=== PATIENT | female | born 1930 | race Caucasian/White ===

== ENCOUNTER 2018-08-13 13:11 | Emergency (ER) | payer MEDICARE, OTHER ==
[~2018-08-13] VITALS: Ht 167.6 cm; Wt 54.4 kg
--- OUTSIDE RECORDS SUMMARY | 2018-08-13 13:14 | XMS REPORT | Clinical Summary ---
Author Author [facility] Address Unknown Phone Unavailable Care Team Providers Care Loom Winder Tender Name Role Phone Claire Nguyen MD PCP Allergies Active Allergy Reactions Severity Noted Date Comments Morphine Nausea And Vomiting 12/23/2015 Penicillins Rash Low 12/23/2015 1982 Silver Nitrate Swelling 02/02/2016 Redness; Wound never healed Silver Sulfadiazine 12/23/2015 Sulfa (Sulfonamide Rash Low 12/23/2015 1988 Antibiotics) Sulfacetamide Sodium 08/04/2016 Sulfasalazine 05/24/2016 Current Medications Prescription Sig. Disp. Refills Start End Date Status Date CRANBERRY FRUIT EXTRACT Take by mouth. Active (ELLURA ORAL) levothyroxine (SYNTHROID, TAKE 1 TABLET BY MOUTH 90 tablet 3 10/01/20 Active LEVOXYL) 50 mcg tablet EVERY DAY 17 folic Take by mouth. Active acid/multivit-min/lutein (CENTRUM SILVER ORAL) docusate sodium (COLACE Take by mouth. Active ORAL) MAGNESIUM ORAL Take by mouth nightly. Active loratadine (CLARITIN Take by mouth as needed. Active ORAL) gabapentin (NEURONTIN) Take 1 capsule (100 mg 90 capsule 11 02/16/20 02/16/20 Active 100 mg capsule total) by mouth 3 (three) 18 19 times a day. atorvastatin (LIPITOR) 20 TAKE 1 TABLET BY MOUTH 90 tablet 3 06/18/20 Active MG tablet EVERY DAY 18 ramipril (ALTACE) 10 MG TAKE 2 CAPSULES BY MOUTH 180 capsule 2 06/18/20 Active capsule EVERY DAY 18 amLODIPine (NORVASC) 5 mg TAKE 1 TABLET (5 MG 90 tablet 2 06/18/20 06/18/20 Active tablet TOTAL) BY MOUTH DAILY. 18 19 levothyroxine (SYNTHROID, TAKE 1 TABLET (50 MCG 90 tablet 3 09/21/20 09/30/20 Discontin LEVOXYL) 50 mcg tablet TOTAL) BY MOUTH ONCE 16 17 ued DAILY. ramipril (ALTACE) 10 MG TAKE 2 CAPSULES (20 MG 180 capsule 2 01/09/20 09/26/20 Discontin capsule TOTAL) BY MOUTH ONCE 17 17 ued DAILY. amLODIPine (NORVASC) 5 mg Take 1 tablet (5 mg 90 tablet 3 06/28/20 06/15/20 Discontin tablet total) by mouth daily. 17 18 ued doxycycline (VIBRAMYCIN) Take 1 capsule (100 mg 14 capsule 1 07/02/20 02/16/20 Discontin 100 MG total) by mouth 2 (two) 17 18 ued capsuleIndications: times a day for 334 days. Recurrent UTI atorvastatin (LIPITOR) 20 TAKE 1 TABLET (20 MG 90 tablet 3 07/09/20 06/15/20 Discontin MG tablet TOTAL) BY MOUTH ONCE 17 18 ued DAILY. ramipril (ALTACE) 10 MG TAKE 2 CAPSULES (20 MG 180 capsule 2 09/26/20 06/15/20 Discontin capsule TOTAL) BY MOUTH ONCE 17 18 ued DAILY. 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 Resolved Problems Problem Noted Date Resolved Date LLQ pain 08/04/2016 02/15/2018 Bee sting reaction 10/29/2013 02/15/2018 Encounters Date Type Specialty Care Team Description 06/15/2018 Refill Family Medicine Claire Nguyen MD 02/18/2018 Hospital Procedural Cardiology Claire Nguyen MD Right leg swelling Encounter 02/18/2018 Telephone Internal Medicine Naila Paz MA Hypothyroidism, unspecified type (Primary Dx) 02/15/2018 Office Visit Internal Medicine Claire Nguyen MD Encounter for general adult medical examination with abnormal findings (Primary Dx); Benign hypertension; Acquired hypothyroidism; Immune thrombocytopenic purpura; Pure hypercholesterolemia; Chest wall pain; Right leg swelling 09/30/2017 Refill Internal Medicine Claire Nguyen MD 09/26/2017 Refill Internal Medicine Claire Nguyen MD 08/17/2017 Office Visit Internal Medicine Claire Nguyen MD Environmental allergies (Primary Dx); Age related osteoporosis, unspecified pathological fracture presence; Flu vaccine need after 08/12/2017 Immunizations Name Dates Previously Given Next Due FLUZONE HIGH-DOSE PF 08/17/2017, 07/02/2015, 06/17/2014 Influenza Trivalent 07/11/2016 Influenza, Unspecified 10/29/2013, 07/12/2012 Pneumococcal Conjugate 07/08/2015 13-Valent Pneumococcal 07/15/2011 Polysaccharide Tdap 07/15/2011 Family History Medical History Relation Name Comments Heart disease Father Asthma Mother Cancer Mother lung Lung cancer Mother Relation Name Status Comments Father Mother Social History Tobacco Use Types Packs/Day Years Used Date Former Smoker Cigarettes 0.25 3 05/18/1950 - 05/18/1952 Smokeless Tobacco: Never Used Alcohol Use Drinks/Week oz/Week Comments No Sex Assigned at Date Recorded Not on file Last Filed Vital Signs Vital Sign Reading Time Taken Blood Pressure 222/76 02/15/2018 10:46 AM CDT Pulse 66 02/15/2018 10:46 AM CDT Temperature 36.4 C (97.5 F) 02/15/2018 10:46 AM CDT Respiratory Rate - - Oxygen Saturation 96% 02/15/2018 10:46 AM CDT Inhaled Oxygen - - Concentration Weight 56.2 kg (124 lb) 02/15/2018 10:46 AM CDT Height 167.6 cm (5' 6") 02/15/2018 10:46 AM CDT Body Mass Index 20.01 02/15/2018 10:46 AM CDT Plan of Treatment Date Type Specialty Care Team Description 08/30/2018 Office Visit Internal Medicine Claire Nguyen MD [address] [address] Health Maintenance Due Date Last Done Comments SHINGRIX VACCINE (#1) 1979 INFLUENZA VACCINE 05/15/2018 08/17/2017, 08/17/2017, 08/17/2017, Additional history exists PNEUMOCOCCAL Completed 07/15/2011 POLYSACCHARIDE VACCINE AGE 65 AND OVER PNEUMOCOCCAL-13 Completed 07/08/2015, 07/08/2015 ZOSTER VACCINE Excluded Procedures Procedure Name Priority Date/Time Associated Diagnosis Comments US DUPLEX VENOUS LOWER Routine 02/18/2018 Right leg swelling Results for this EXTREMITY RIGHT 12:59 PM CDT procedure are in the results section. XR CHEST 2 VW Routine 02/15/2018 Chest wall pain Results for this 11:31 AM CDT procedure are in the results section. MICROSCOPIC EXAMINATION Routine 02/15/2018 Results for this 11:18 AM CDT procedure are in the results section. THYROID STIMULATING Routine 02/15/2018 Acquired hypothyroidism Results for this HORMONE 11:18 AM CDT procedure are in the results section. URINALYSIS, COMPLETE, Routine 02/15/2018 Benign hypertension Results for this WITH REFLEX TO CULTURE 11:18 AM CDT procedure are in the results section. CBC WITH PLATELET AND Routine 02/15/2018 Immune thrombocytopenic Results for this DIFFERENTIAL 11:18 AM CDT purpura procedure are in the results section. LIPID PANEL Routine 02/15/2018 Pure hypercholesterolemia Results for this 11:18 AM CDT procedure are in the results section. COMPREHENSIVE METABOLIC Routine 02/15/2018 Benign hypertension Results for this PANEL 11:18 AM CDT Acquired hypothyroidism procedure are in the Immune thrombocytopenic results section. purpura Pure hypercholesterolemia FLUZONE HIGH-DOSE PF Routine 08/17/2017 Flu vaccine need (0.5ML SYRINGE) 10:40 AM CDT after 08/12/2017 Results * Pv duplex venous lower extremity (02/18/2018 12:59 PM) Narrative Performed At [facility] Normal venous duplex scan of the right leg, except for the cystic structure in the right popliteal fossa. Performing Organization Address City/State/Zipcode Phone Number [facility] [address] [place] [address] * XR Chest 2 Vw (02/15/2018 11:31 AM) Narrative Performed At EXAMINATION:XR CHEST 2 VW [facility] CLINICAL HISTORY:R07.89 Other chest pain, Chest Pain COMPARISON:05/18/2016 IMPRESSION: Heart and mediastinum are stable. Mild scoliosis. Lungs are free of consolidations. Osteopenia again noted. Calcified right paratracheal nodes again seen. [id number] Procedure Note Hm Interface, Radiology Results Incoming - 02/15/2018 11:46 AM CDT EXAMINATION: XR CHEST 2 VW CLINICAL HISTORY: R07.89 Other chest pain, Chest Pain COMPARISON: 05/18/2016 IMPRESSION: Heart and mediastinum are stable. Mild scoliosis. Lungs are free of consolidations. Osteopenia again noted. Calcified right paratracheal nodes again seen. [id number] Performing Organization Address [facility] Phone Number [facility] [address] [place] [address] * URINALYSIS, COMPLETE, WITH REFLEX TO CULTURE (02/15/2018 11:18 AM) Specific gravity, urine 1.019 1.005 - 1.030 [facility] pH, urine 7.0 5.0 - 7.5 [facility] Color, UA Yellow Yellow [facility] Appearance Clear Clear [facility] WBC esterase, urine Negative Negative [facility] Protein, UA 1+ (A) Negative/Trace [facility] Glucose, urine Negative Negative [facility] Ketones, UA Negative Negative [facility] Occult blood, urine Negative Negative [facility] Bilirubin, UA Negative Negative [facility] Urobilinogen, UA 0.2 0.2 - 1.0 mg/dL [facility] Nitrite, UA Negative Negative [facility] Microscopic examination See below:Comment: Microscopic [facility] was indicated and was performed. Urinalysis reflex CommentComment: This specimen [facility] will not reflex to a Urine Culture. Narrative Performed At Performed at: [id number] Sanitor: Man Melchor MD, Phone:[phone] Performing Organization Address [facility] Phone Number [facility] * Microscopic Examination (02/15/2018 11:18 AM) WBC, UA 0-5 0 - 5 /hpf [facility] RBC, UA 0-2 0 - 2 /hpf [facility] Epithelial cells (non 0-10 0 - 10 /hpf [facility] renal) Crystals, urine Present (A) N/A [facility] Crystal type Amorphous Sediment N/A [facility] Mucus, UA Present Not Estab. [facility] Bacteria, UA None seen None seen/Few [facility] Narrative Performed At Performed at: [facility] [address] [place] [address], [id number] Sanitor: Man Melchor MD, Phone:[phone] Performing Organization Address [facility] Phone Number [facility] * CBC with platelet and differential (02/15/2018 11:18 AM) WBC 5.2 3.4 - 10.8 x10E3/uL [facility] RBC 4.78 3.77 - 5.28 x10E6/uL [facility] HGB 13.2 11.1 - 15.9 g/dL [facility] HCT 39.6 34.0 - 46.6 % [facility] MCV 83 79 - 97 fL [facility] MCH 27.6 26.6 - 33.0 pg [facility] MCHC 33.3 31.5 - 35.7 g/dL [facility] RDW 16.7 (H) 12.3 - 15.4 % [facility] Platelet count 59 (LL) 150 - 379 x10E3/uL [facility] Comment: Platelet count verified by examination of peripheral blood smear. Decreased. Neutrophils 65 Not Estab. % [facility] Lymphocytes 22 Not Estab. % [facility] Monocytes 7 Not Estab. % [facility] Eosinophils 3 Not Estab. % [facility] Basophils 3 Not Estab. % [facility] Neutrophils, absolute 3.4 1.4 - 7.0 x10E3/uL [facility] Lymphocytes, absolute 1.1 0.7 - 3.1 x10E3/uL [facility] Monocytes, absolute 0.4 0.1 - 0.9 x10E3/uL [facility] Eosinophils, absolute 0.2 0.0 - 0.4 x10E3/uL [facility] Basophils, absolute 0.1 0.0 - 0.2 x10E3/uL [facility] Immature granulocytes 0 Not Estab. % [facility] Immature grans (abs) 0.0 0.0 - 0.1 x10E3/uL [facility] Hematology comments: Note:Comment: Verified by [facility] microscopic examination. Specimen Blood Narrative Performed At [facility]formed at:[facility] - [facility] [address] [place], [id number] Sanitor: Man Melchor MD, Phone:[phone] Performing Organization Address [facility] Phone Number [facility] * Thyroid stimulating hormone (02/15/2018 11:18 AM) TSH 5.180 (H) 0.450 - 4.500 uIU/mL [facility] Specimen Blood Narrative Performed At Performed at:01 - [facility] [place], [id number] Sanitor: Man Melchor MD, Phone:[phone] Performing Organization Address [facility] Phone Number [facility] * Lipid panel (02/15/2018 11:18 AM) Cholesterol 175 100 - 199 mg/dL [facility] Triglycerides 96 0 - 149 mg/dL [facility] HDL cholesterol 74 >39 mg/dL [facility] VLDL cholesterol bibiana 19 5 - 40 mg/dL [facility] LDL cholesterol 82 0 - 99 mg/dL [facility] calculated Non-HDL cholesterol 101 0 - 129 mg/dL [facility] Specimen Blood Narrative Performed At Performed at:01 - [facility] [address] [place], [place] [id number] Sanitor: Man Melchor MD, Phone:[phone] Performing Organization Address [facility] Phone Number [facility] * Comprehensive metabolic panel (02/15/2018 11:18 AM) Glucose 92 65 - 99 mg/dL [facility] BUN, whole blood 23 8 - 27 mg/dL [facility] Creatinine 0.87 0.57 - 1.00 mg/dL [facility] EGFR Non-Afr. Haitian 59 (L) >59 mL/min/1.73 [facility] EGFR 68 >59 mL/min/1.73 [facility] BUN/creatinine ratio 26 12 - 28 [facility] Sodium 144 134 - 144 mmol/L [facility] Potassium 3.7 3.5 - 5.2 mmol/L [facility] Chloride 103 96 - 106 mmol/L [facility] CO2 24 18 - 29 mmol/L [facility] Calcium 8.9 8.7 - 10.3 mg/dL [facility] Protein 7.2 6.0 - 8.5 g/dL [facility] Albumin, S 4.8 (H) 3.5 - 4.7 g/dL [facility] Globulin, total 2.4 1.5 - 4.5 g/dL [facility] Albumin/globulin ratio 2.0 1.2 - 2.2 [facility] Total bilirubin 0.5 0.0 - 1.2 mg/dL [facility] Alkaline phosphatase 71 39 - 117 IU/L [facility] AST 23 0 - 40 IU/L [facility] ALT 19 0 - 32 IU/L [facility] Specimen Blood Narrative Performed At Performed at: [facility] [address] [place], [id number] Sanitor: Man Melchor MD, Phone:[phone] Performing Organization Address City/State/[facility] Phone Number [facility] * Fluzone High-Dose PF (08/17/2017 10:40 AM) after 08/12/2017 Insurance Payer Benefit Subscriber ID Type Phone Address Plan / Group MEDICARE MEDICARE xxxxxxxxxx Medicare [place], [place] PART A AND B COMMERCIAL MISC MISC xxxxxxxxx [place] [address]
--- NOTE | 2018-08-13 15:15 | Diagnostic Imaging Report ---
EXAM: CT of the abdomen and pelvis WITHOUT contrast HISTORY: Left-sided abdominal pain for 2 weeks, left upper quadrant, history of gallbladder surgery, appendectomy and hysterectomy COMPARISON: None available. TECHNIQUE: The abdomen and pelvis were scanned utilizing a multidetector helical scanner. Coronal and sagittal reformats are available. PROTOCOL: Routine IV CONTRAST: None, which limits sensitivity and specificity of evaluation of the soft tissues and vascular structures. ORAL CONTRAST: None, which limits sensitivity and specificity of evaluation of the bowel. RADIATION DOSE: Total DLP: 386.96 mGy*cm Estimated effective dose: (DLP x 0.015 x size factor) Dose modulation, iterative reconstruction, and/or weight based adjustment of the mA/kV was utilized to reduce the radiation dose to as low as reasonably achievable. COMPLICATIONS: None FINDINGS: LOWER THORAX: Mild bibasilar atelectasis versus scarring. Trace pericardial fluid. HEPATOBILIARY: No definite focal hepatic lesions. No biliary ductal dilatation. Diffuse scattered atherosclerotic vascular calcifications. SPLEEN: No splenomegaly. PANCREAS: No focal masses or ductal dilatation. ADRENALS: No discrete adrenal nodule. KIDNEYS/URETERS: No hydronephrosis, stones, or solid mass lesion identified. Mild parenchymal atrophy on the left. PELVIC ORGANS/BLADDER: The urinary bladder is decompressed, limiting evaluation. PERITONEUM / RETROPERITONEUM: No free air or fluid. GI TRACT: On limited evaluation of the gastrointestinal tract, no dilation or wall thickening identified. The stomach is partially decompressed, limiting evaluation. LYMPH NODES: No pathologically enlarged lymph nodes. VESSELS: Prominent scattered atherosclerotic vascular calcifications. BONES: Diffusely decreased mineralization of the osseous structures limits bone detail. Left convex curvature of the lumbar spine and multilevel degenerative changes. Chronic appearing compression deformities versus remodeling of T12 on the right, and L4 and L5 on the left. Chronic healed fracture deformities involving the left superior and inferior pubic rami. Bilateral pars interarticularis defects at L5 without associated listhesis. SOFT TISSUES: Diffuse muscle atrophy. IMPRESSION: 1. No acute finding to definitively explain the left-sided abdominal pain. 2. Multiple incidental findings include: * Prominent atherosclerosis. * Mild left renal atrophy. * Diffusely decreased osseous demineralization and age-indeterminate compression deformities versus remodeling of multiple vertebral bodies. * Multilevel degenerative changes of the lumbosacral spine, most notably severe at T12-L1 and L4-5. * Bilateral L5 pars interarticularis defects. Signed by: Dr. Ted Santos D.O., M.M.M. on 08/13/2018 3:12 PM
[2018-08-13 15:21] VITALS: BP 189/84
[2018-08-13] MEDS ORDERED: SIMETHICONE80 MG PO (15:26)
== END 2018-08-13 15:30 | disposition home or self-care (01) ==
LOC: FSED 13:11
DX: R10.12 Left upper quadrant pain (principal); M54.5 Low back pain; R14.1 Gas pain; I10 Essential (primary) hypertension
CPT/HCPCS: 74176; 80048; 80076; 81003; 85025; 99284

== ENCOUNTER 2018-09-28 07:54 | Emergency (ER) | payer MEDICARE, OTHER ==
[~2018-09-28] VITALS: Ht 167.6 cm; Wt 55.3 kg
[~2018-09-28 07:54] MED LIST: SIMETHICONE80 MG PO
[2018-09-28 09:10] VITALS: BP 147/75
[2018-09-28] MEDS ORDERED: HYDROCODONE/APAP 5MG-325MG TAB PO ONE (18:45)
== END 2018-09-28 09:18 | disposition home or self-care (01) ==
LOC: FSED 07:54
DX: R30.0 Dysuria (principal); N30.91 Cystitis, unspecified with hematuria; M54.6 Pain in thoracic spine; M54.14 Radiculopathy, thoracic region
CPT/HCPCS: 81003; 99283

== ENCOUNTER 2018-12-31 07:38 | Emergency (ER) | payer MEDICARE, OTHER ==
[~2018-12-31] VITALS: Ht 167.6 cm; Wt 54.4 kg
--- OUTSIDE RECORDS SUMMARY | 2018-12-31 07:42 | XMS REPORT ---
Author Author [facility] Address Unknown Phone Unavailable Care Team Providers Care Bologna Lacer Name Role Phone Janey WYMAN Unavailable Unavailable Problems This patient has no known problems. Allergies, Adverse Reactions, Alerts This patient has no known allergies or adverse reactions. Medications This patient has no known medications. Results Test Description Test Time Test Comments Text Results Atomic Results Result Comments CT ABD/PEL WO CONTRAST-HOPD 2018-08-13 14:56:00 [place] [address] Patient Name: CONCHITA MONTALVO MR #: [id number] : 1930 Age/Sex: 88/F Req #: [id number] Adm Physician: Ordered by: MIRACLE WYMAN MD Report #: [id number] Location: [facility] Room/Bed: Procedure: [id number] HOPD/CT ABD/PEL WO CONTRAST-HOPD Exam Date: 08/13/18 Exam Time: 1400 REPORT STATUS: Signed EXAM: CT of the abdomen and pelvis WITHOUT contrast HISTORY: Left-sided abdominal pain for 2 weeks, left upper quadrant, history of gallbladder surgery, appendectomy and hysterectomy COMPARISON: None available. TECHNIQUE: The abdomen and pelvis were scanned utilizing a multidetector helical scanner. Coronal and sagittal reformats are available. PROTOCOL: Routine IV CONTRAST: None, which limits sensitivity and specificity of evaluation of the soft tissues and vascular structures. ORAL CONTRAST: None, which limits sensitivity and specificity of evaluation of the bowel. RADIATION DOSE: Total DLP: 386.96 mGy*cm Estimated effective dose: (DLP x 0.015 x size factor) Dose modulation, iterative reconstruction, and/or weight based adjustment of the mA/kV was utilized to reduce the radiation dose to as low as reasonably achievable. COMPLICATIONS: None FINDINGS: LOWER THORAX: Mild bibasilar atelectasis versus scarring. Trace pericardial fluid. HEPATOBILIARY: No definite focal hepatic lesions. No biliary ductal dilatation. Diffuse scattered atherosclerotic vascular calcifications. SPLEEN: No splenomegaly. PANCREAS: No focal masses or ductal dilatation. ADRENALS: No discrete adrenal nodule. KIDNEYS/URETERS: No hydronephrosis, stones, or solid mass lesion identified. Mild parenchymal atrophy on the left. PELVIC ORGANS/BLADDER: The urinary bladder is decompressed, limiting evaluation. PERITONEUM / RETROPERITONEUM: No free air or fluid. GI TRACT: On limited evaluation of the gastrointestinal tract, no dilation or wall thickening identified. The stomach is partially decompressed, limiting evaluation. LYMPH NODES: No pathologically enlarged lymph nodes. VESSELS: Prominent scattered atherosclerotic vascular calcifications. BONES: Diffusely decreased mineralization of the osseous structures limits bone detail. Left convex curvature of the lumbar spine and multilevel degenerative changes. Chronic appearing compression deformities versus remodeling of T12 on the right, and L4 and L5 on the left. Chronic healed fracture deformities involving the left superior and inferior pubic rami. Bilateral pars interarticularis defects at L5 without associated listhesis. SOFT TISSUES: Diffuse muscle atrophy. IMPRESSION: 1. No acute finding to definitively explain the left-sided abdominal pain. 2. Multiple incidental findings include: * Prominent atherosclerosis. * Mild left renal atrophy. * Diffusely decreased osseous demineralization and age-indeterminate compression deformities versus remodeling of multiple vertebral bodies. * Multilevel degenerative changes of the lumbosacral spine, most notably severe at T12-L1 and L4-5. * Bilateral L5 pars interarticularis defects. Signed by: Navi Luna.O., M.M.M. on 08/13/2018 3:12 PM Dictated By: LELA HAMILTON DO 151 Transcribed By: JACOB on 08/13/181511 COPY TO: MIRACLE WYMAN MD
--- OUTSIDE RECORDS SUMMARY | 2018-12-31 07:42 | XMS REPORT | Clinical Summary ---
Author Author [facility] Organization [facility] Address Unknown Phone Unavailable Care Team Providers Care Stock Order Lister Name Role Phone Claire Nguyen MD PCP Allergies Comments Active Allergy Reactions Severity Noted Date Morphine Nausea And 12/23/2015 Vomiting 1981 Penicillins Rash Low 12/23/2015 Redness; Wound never healed Silver Nitrate Swelling 02/02/2016 Silver Sulfadiazine 12/23/2015 1988 Sulfa (Sulfonamide Rash Low 12/23/2015 Antibiotics) Sulfacetamide Sodium 08/04/2016 Sulfasalazine 05/24/2016 Medications End Date Status Medication Sig Dispensed Refills Start Date Active CRANBERRY FRUIT EXTRACT Take by 0 (ELLURA ORAL) mouth. Active folic Take by 0 acid/multivit-min/lutein mouth. (CENTRUM SILVER ORAL) Active docusate sodium (COLACE Take by 0 ORAL) mouth. Active loratadine (CLARITIN Take by mouth 0 ORAL) as needed. Active atorvastatin (LIPITOR) 20 TAKE 1 TABLET 90 tablet 3 MG tablet BY MOUTH 8 EVERY DAY Active ramipril (ALTACE) 10 MG TAKE 2 180 capsule 2 capsule CAPSULES BY 8 MOUTH EVERY DAY 06/18/2019 Active amLODIPine (NORVASC) 5 mg TAKE 1 TABLET 90 tablet 2 tablet (5 MG TOTAL) 8 BY MOUTH DAILY. Active levothyroxine (SYNTHROID, TAKE 1 TABLET 90 tablet 3 LEVOXYL) 50 mcg tablet BY MOUTH 8 EVERY DAY 09/12/2019 Active teriparatide (FORTEO) 20 Inject 0.08 7.2 mL 3 mcg/dose - 600 mcg/2.4 mL mL (20 mcg 8 injection total) under the skin daily. Active gabapentin (NEURONTIN) Take 1 360 capsule 3 300 mg capsule capsule (300 9 mg total) by mouth 3 (three) times a day. 06/15/2018 Discontinued amLODIPine (NORVASC) 5 mg Take 1 tablet 90 tablet 3 tablet (5 mg total) 7 by mouth daily. 02/15/2018 Discontinued doxycycline (VIBRAMYCIN) Take 1 14 capsule 1 100 MG capsule (100 7 capsuleIndications: mg total) by Recurrent UTI mouth 2 (two) times a day for 334 days. 06/15/2018 Discontinued atorvastatin (LIPITOR) 20 TAKE 1 TABLET 90 tablet 3 MG tablet (20 MG TOTAL) 7 BY MOUTH ONCE DAILY. 06/15/2018 Discontinued ramipril (ALTACE) 10 MG TAKE 2 180 capsule 2 capsule CAPSULES (20 7 MG TOTAL) BY MOUTH ONCE DAILY. 09/12/2018 Discontinued levothyroxine (SYNTHROID, TAKE 1 TABLET 90 tablet 3 LEVOXYL) 50 mcg tablet BY MOUTH 7 EVERY DAY 10/25/2018 Discontinued MAGNESIUM ORAL Take by mouth 0 nightly. 08/31/2018 Discontinued gabapentin (NEURONTIN) Take 1 90 capsule 11 100 mg capsule capsule (100 8 mg total) by mouth 3 (three) times a day. 09/12/2018 Discontinued pregabalin (LYRICA) 25 MG Take 1 30 capsule 0 capsule capsule (25 8 mg total) by mouth 2 (two) times a day for 15 days. 10/12/2018 pregabalin (LYRICA) 50 MG Take 1 90 capsule 1 capsule capsule (50 8 mg total) by mouth 3 (three) times a day for 30 days. 10/25/2018 Discontinued gabapentin (NEURONTIN) Take 300 mg 0 300 mg capsule by mouth 3 8 (three) times a day. 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 Resolved Problems Problem Noted Date Resolved Date LLQ pain 08/04/2016 02/15/2018 Bee sting reaction 10/29/2013 02/15/2018 Encounters Care Team Description Date Type Specialty Claire Nguyen MD Age-related osteoporosis with current pathological fracture, sequela (Primary Dx); Immune thrombocytopenic purpura (HCC); Non-traumatic compression fracture of sixth thoracic vertebra, sequela; Acquired hypothyroidism 10/25/2018 Office Visit Internal Medicine Claire Nguyen MD Non-traumatic compression fracture of sixth thoracic vertebra, sequela (Primary Dx); Age-related osteoporosis with current pathological fracture, sequela; Hospital discharge follow-up 09/12/2018 Office Visit Internal Claire Conley MD 09/12/2018 Refill Internal Medicine Claire Nguyen MD 09/09/2018 Telephone Internal Medicine Payam Reddy MD 08/28/2018 Anesthesia Radiology Event Oskar Garcia MD Lee, Kelvin M., MD Non-traumatic compression fracture of sixth thoracic vertebra, initial encounter (HCC) (Primary Dx); Non-traumatic compression fracture of seventh thoracic vertebra, initial encounter (HCC); Lumbosacral radiculopathy 08/26/2018 [facility] Orthopedic Surgery - Encounter 08/31/2018 Alexandra Russ 08/26/2018 Patient Quality Outreach Claire Nguyen MD 06/15/2018 Refill Family Medicine Claire Nguyen MD Right leg swelling 02/18/2018 Hospital Procedural Cardiology Encounter Naila Paz MA Hypothyroidism, unspecified type (Primary Dx) 02/18/2018 Telephone Internal Medicine Claire Nguyen MD Encounter for general adult medical examination with abnormal findings (Primary Dx); Benign hypertension; Acquired hypothyroidism; Immune thrombocytopenic purpura; Pure hypercholesterolemia; Chest wall pain; Right leg swelling 02/15/2018 Office Visit Internal Medicine after 12/30/2017 Immunizations Name Dates Previously Given Next Due FLUZONE HIGH-DOSE PF 07/17/2018, 08/17/2017, 07/02/2015, 06/17/2014 Influenza Trivalent 07/11/2016 Influenza, Unspecified 10/29/2013, 07/12/2012 Pneumococcal Conjugate 07/08/2015 13-Valent Pneumococcal 07/15/2011 Polysaccharide Tdap 07/15/2011 Family History Medical History Relation Name Comments Heart disease Father Asthma Mother Cancer Mother lung Lung cancer Mother Relation Name Status Comments Father Mother Social History Date Tobacco Use Types Packs/Day Years Used 05/18/1950 - 05/18/1952 Former Smoker Cigarettes 0.25 3 Smokeless Tobacco: Never Used Alcohol Use Drinks/Week oz/Week Comments No Sex Assigned at Date Recorded Not on file Industry Job Start Date Occupation Not on file Not on file Not on file Travel End Travel History Travel Start No recent travel history available. Last Filed Vital Signs Time Taken Vital Sign Reading 10/25/2018 9:09 AM FISHER TRAP Blood Pressure 179/74 10/25/2018 9:09 AM [facility] TR[facility] Pulse 61 10/25/2018 9:09 AM [facility] TRAP Temperature 36.4 C (97.6 F) 08/31/2018 11:48 AM FISHER TRAP Respiratory Rate 18 10/25/2018 9:09 AM FISHER TRAP Oxygen Saturation 98% - Inhaled Oxygen - Concentration 10/25/2018 9:09 AM FISHER TRAP Weight 54.6 kg (120 lb 6.4 oz) 10/25/2018 9:09 AM [facility] TRAP Height 167.6 cm (5' 6") 10/25/2018 9:09 AM [facility]ER TRAP Body Mass Index 19.43 Plan of Treatment Care Team Description Date Type Specialty Claire Nguyen MD [address] [facility] [address] [place] [address] [phone] 02/24/2019 Office Visit Internal Medicine Health Maintenance Due Date Last Done Comments SHINGLES VACCINES (#1) 1979 PNEUMOCOCCAL Completed 07/15/2011 POLYSACCHARIDE VACCINE AGE 65 AND OVER 65+ PNEUMOCOCCAL VACCINE Completed 07/08/2015, 07/15/2011 INFLUENZA VACCINE Completed 07/17/2018, 08/17/2017, 08/17/2017, Additional history exists Implants Device Identifier Shelf Expiration Date Model / Serial / Lot Implanted Type Area Manufactur er 07/14/2020 [id number] / / [id number] Kit Cmnt Spinal Hiviscocty 11ml Spinal N/A: N/A DEPUY [employer] Plus - [id number] Implants SPINE Implanted: 08/28/2018 (Quantity not on file) 07/14/2020 [id number] / / [id number] Kit Cmnt Spinal Hiviscocty 11ml Spinal N/A: N/A DEPUY [employer] Plus - [id number] Implants SPINE Implanted: 08/28/2018 (Quantity not on file) Procedures Comments Procedure Name Priority Date/Time Associated Diagnosis T3, FREE Routine 10/25/2018 Hypothyroidism, 10:03 AM FISHER TRAP unspecified type T4, FREE Routine 10/25/2018 Hypothyroidism, 10:03 AM FISHER TRAP unspecified type THYROID STIMULATING Routine 10/25/2018 Hypothyroidism, HORMONE 10:03 AM FISHER TRAP unspecified type PARATHYROID HORMONE Routine 09/12/2018 Age-related osteoporosis 11:47 AM FISHER TRAP with current pathological fracture, sequela VITAMIN D 25 HYDROXY Routine 09/12/2018 Age-related osteoporosis LEVEL 11:47 AM FISHER TRAP with current pathological fracture, sequela IR VERTEBRO LUM UNI OR Routine 08/28/2018 NAKIA 12:06 PM FISHER TRAP HC COMPLETE BLD COUNT STAT 08/28/2018 W/AUTO DIFF 7:59 AM FISHER TRAP PROTHROMBIN TIME WITH INR STAT 08/28/2018 7:59 AM FISHER TRAP T4, FREE Routine 08/28/2018 4:00 AM FISHER TRAP THYROID STIMULATING Routine 08/28/2018 HORMONE 4:00 AM FISHER TRAP PREPARE PLATELET PHERESIS Timed 08/27/2018 6:40 PM FISHER TRAP TYPE AND SCREEN Timed 08/27/2018 6:40 PM FISHER TRAP MRI LUMBAR SPINE WO Routine 08/27/2018 CONTRAST 6:21 PM FISHER TRAP MRI THORACIC SPINE WO Routine 08/26/2018 CONTRAST 9:01 PM FISHER TRAP GRAM STAIN Routine 08/26/2018 4:53 PM FISHER TRAP URINE CULTURE Routine 08/26/2018 4:[address] CHEST W CONTRAST STAT 08/26/2018 ABDOMEN W CONTRAST PELVIS 2:13 PM FISHER TRAP W CONTRAST URINALYSIS STAT 08/26/2018 12:42 PM FISHER TRAP SMEAR REVIEW STAT 08/26/2018 11:40 AM FISHER TRAP ESTIMATED GFR STAT 08/26/2018 11:40 AM FISHER TRAP LIPASE LEVEL STAT 08/26/2018 11:40 AM FISHER TRAP COMPREHENSIVE METABOLIC STAT 08/26/2018 PANEL 11:40 AM FISHER TRAP HC COMPLETE BLD COUNT STAT 08/26/2018 W/AUTO DIFF 11:40 AM FISHER TRAP US DUPLEX VENOUS LOWER Routine 02/18/2018 Right leg swelling EXTREMITY RIGHT 12:59 PM CDT XR CHEST 2 VW Routine 02/15/2018 Chest wall pain 11:31 AM CDT MICROSCOPIC EXAMINATION Routine 02/15/2018 11:18 AM CDT THYROID STIMULATING Routine 02/15/2018 Acquired hypothyroidism HORMONE 11:18 AM CDT URINALYSIS, COMPLETE, Routine 02/15/2018 Benign hypertension WITH REFLEX TO CULTURE 11:18 AM CDT CBC WITH PLATELET AND Routine 02/15/2018 Immune thrombocytopenic DIFFERENTIAL 11:18 AM CDT purpura LIPID PANEL Routine 02/15/2018 Pure hypercholesterolemia 11:18 AM CDT COMPREHENSIVE METABOLIC Routine 02/15/2018 Benign hypertension PANEL 11:18 AM CDT Acquired hypothyroidism Immune thrombocytopenic purpura Pure hypercholesterolemia after 12/30/2017 Results * T3, free (10/25/2018 10:03 AM FISHER TRAP) T3, free 2.3 2.3 - 4.2 pg/mL [employer] [place] Specimen Blood Narrative Performed At FASTING: NO QUEST Resulting Agency Comment Performing Organization Information: Site ID: [id number] Name: [facility] Address: [address] [place] [phone] Director: Patty Wang Performing Organization Address City/State/Zipcode Phone Number [employer] [place] [address] [place] [phone] * Thyroid stimulating hormone (10/25/2018 10:03 AM FISHER TRAP) Only the most recent of 3 results within the time period is included. TSH 2.46 0.40 - 4.50 mIU/L [employer] [place] Specimen Blood Narrative Performed At FASTING: NO QUEST Resulting Agency Comment Performing Organization Information: Site ID: [id number] Name: [facility] Address: [address] [place] [phone] Director: Patty Wang Performing Organization Address [facility] Phone Number [place] [address] * T4, free (10/25/2018 10:03 AM FISHER TRAP) Only the most recent of 2 results within the time period is included. T4, free 1.3 0.8 - 1.8 ng/dL [employer] [place] Specimen Blood Narrative Performed At FASTING: NO QUEST Resulting Agency Comment Performing Organization Information: Site ID: [facility] Name: [facility] Address: [address] [place] [phone] Director: Patty Wang Performing Organization Address [facility] Phone Number [employer] [address] * Vitamin D 25 hydroxy level (09/12/2018 11:47 AM FISHER TRAP) Vitamin D, 25-hydroxy 31.2 30.0 - 100.0 ng/mL [facility] Comment: Vitamin D deficiency has been defined by the [employer] of Medicine and an Endocrine Society practice guideline as a level of serum 25-OH vitamin D less than 20 ng/mL (1,2). The Endocrine Society went on to further define vitamin D insufficiency as a level between 21 and 29 ng/mL (2). 1. IOM ([employer] of Medicine). 2010. Dietary reference intakes for calcium and D. [place]: The National Academies Press. 2. Onur MF, Agustín [place], Rodríguez CAGE, et al. Evaluation, treatment, and prevention of vitamin D deficiency: an Endocrine Society clinical practice guideline. JCEM. 2010; 96(7):1911-30. Specimen Blood Narrative Performed At Performed at: - [facility] [address] [place], [id number] Pipe Organ Builder: Man Melchor MD, Phone:[phone] Performing Organization Address [facility] Phone Number [facility] * Parathyroid hormone (09/12/2018 11:47 AM FISHER TRAP) PTH 31 15 - 65 pg/mL [facility] Specimen Blood Narrative Performed At Performed at:01 - [facility] [address] [place], [id number] Pipe Organ Builder: Man Melchor MD, Phone:[phone] Performing Organization Address [facility] Phone Number [email or web address] * IR Vertebroplasty (08/28/2018 12:06 PM FISHER TRAP) Narrative Performed At EXAMINATION:IR VERTEBRO LUM UNI OR NAKIA HM RADIANT FLUOROSCOPIC-GUIDED CEMENT AUGMENTATION AND INTERNAL FIXATION OF T6, T7 and T12 COMPRESSION FRACTURE WITH VERTEBROPLASTY. CLINICAL HISTORY:Severe mid thoracic and lower thoracic pain. Recent MRI of the thoracic and lumbar spine demonstrates subacute compression fractures involving T6, T7 and T12 levels. COMPARISON:MRI of the spine dated August 27, 2018 PREOPERATIVE DIAGNOSIS: Osteoporotic compression fracture of T6, T7 and T12 vertebral body with severe back pain. POSTOPERATIVE DIAGNOSIS:Same. BLOOD LOSS:0 COMPLICATIONS:None CONSENT: After discussion of the radiographic findings and the compression fracture of T6, T7 and T12 vertebral body with patient and her family, we have decided to treat the compression fracture with Percutaneous vertebroplasty for fracture reduction and internal fixation. The patient and the members of the immediate family understood the risks and benefits of the procedure. Informed consent was obtained. PROCEDURE DESCRIPTION: The patient was brought to the Fluoroscopy Suite and placed on the fluoroscopy table in prone position. The procedure was performed under general anesthesia, which was conducted with an anesthesiologist. Prophylactic intravenous antibiotic1 g Ancef was given. The thoracolumbar region was prepped and draped in standard sterile fashion. The imaging intensifiers were placed in both AP and lateral fluoroscopic planes. Transpedicular/extrapedicular approach was utilized to access the T6, T7 and T12 vertebral compression fractures bilaterally.A 13 gauge entry needle was placed into the posterior aspect of the body of T6, T7 and T12 level bilaterally via transpedicular/extrapedicular approach. Positioning was confirmed in both AP and lateral planes simultaneously. Following satisfactory placement of the needles, the Stylet was removed andunder fluoroscopic imaging, internal fixation was achieved through injection of bone cement, namely polymethylmethacrylate (PMMA). There was no evidence of cement extravasation or any complication. Proper cement distribution in the fractured T6, T7 and T12 vertebral body was achieved. The cannulas were then removed. POST-PROCEDURE: All incisions were closed with Steri-Strips and pressure dressing. The patient was kept in the prone position for approximately 10 minutes. The patient was then turned supine, monitored briefly and returned to the post-procedure monitoring unit. The patient was awake and moving all extremities and at this time showed no neurologic deficit. No complications were encountered. Blood loss was noted to be minimal. Fluoroscopy time was 16 minutes Total fluoroscopic exposure images was 14 images. IMPRESSION: Successful uncomplicated fluoroscopic-guided cement augmentation and internal fixation of T6, T7 and [id number] fracture with vertebroplasty. There was adequate cement distribution in the fracture body and no evidence of complications. [facility]-[id number] Procedure Note [facility], Radiology Results Incoming - 08/28/2018 4:31 PM FISHER TRAP EXAMINATION: IR VERTEBRO LUM UNI OR NAKIA FLUOROSCOPIC-GUIDED CEMENT AUGMENTATION AND INTERNAL FIXATION OF T6, T7 and T12 COMPRESSION FRACTURE WITH VERTEBROPLASTY. CLINICAL HISTORY: Severe mid thoracic and lower thoracic pain. Recent MRI of the thoracic and lumbar spine demonstrates subacute compression fractures involving T6, T7 and T12 levels. COMPARISON: MRI of the spine dated August 27, 2018 PREOPERATIVE DIAGNOSIS: Osteoporotic compression fracture of T6, T7 and T12 vertebral body with severe back pain. POSTOPERATIVE DIAGNOSIS: Same. BLOOD LOSS: 0 COMPLICATIONS: None CONSENT: After discussion of the radiographic findings and the compression fracture of T6, T7 and T12 vertebral body with patient and her family, we have decided to treat the compression fracture with Percutaneous vertebroplasty for fracture reduction and internal fixation. The patient and the members of the immediate family understood the risks and benefits of the procedure. Informed consent was obtained. PROCEDURE DESCRIPTION: The patient was brought to the Fluoroscopy Suite and placed on the fluoroscopy table in prone position. The procedure was performed under general anesthesia, which was conducted with an anesthesiologist. Prophylactic intravenous antibiotic 1 g Ancef was given. The thoracolumbar region was prepped and draped in standard sterile fashion. The imaging intensifiers were placed in both AP and lateral fluoroscopic planes. Transpedicular/extrapedicular approach was utilized to access the T6, T7 and T12 vertebral compression fractures bilaterally. A 13 gauge entry needle was placed into the posterior aspect of the body of T6, T7 and T12 level bilaterally via transpedicular/extrapedicular approach. Positioning was confirmed in both AP and lateral planes simultaneously. Following satisfactory placement of the needles, the Stylet was removed and under fluoroscopic imaging, internal fixation was achieved through injection of bone cement, namely polymethylmethacrylate (PMMA). There was no evidence of cement extravasation or any complication. Proper cement distribution in the fractured T6, T7 and T12 vertebral body was achieved. The cannulas were then removed. POST-PROCEDURE: All incisions were closed with Steri-Strips and pressure dressing. The patient was kept in the prone position for approximately 10 minutes. The patient was then turned supine, monitored briefly and returned to the post-procedure monitoring unit. The patient was awake and moving all extremities and at this time showed no neurologic deficit. No complications were encountered. Blood loss was noted to be minimal. Fluoroscopy time was 16 minutes Total fluoroscopic exposure images was 14 images. IMPRESSION: Successful uncomplicated fluoroscopic-guided cement augmentation and internal fixation of T6, T7 and T12 compression fracture with vertebroplasty. There was adequate cement distribution in the fracture body and no evidence of complications. [facility]-[id number] Performing Organization Address [facility] Phone Number [facility] [address] [place] [address] * Prothrombin time with INR (08/28/2018 7:59 AM FISHER TRAP) Prothrombin time 13.2 11.5 - 14.5 sec [facility] INR 1.0 [facility] Comment: HOSPITAL The International Normalized Ratio (INR) is a therapeutic monitoring tool for patients who are stable on oral anticoagulant therapy. An INR of 2.0-3.0 is suggested for deep vein thrombosis/pulmonary embolism. Specimen Blood Performing Organization Address City/[facility]/Zipcode Phone Number [facility] DEPARTMENT OF [address] [place] [address] PATHOLOGY AND GENOMIC MEDICINE [address] * CBC with platelet and differential (08/28/2018 7:59 AM FISHER TRAP) Only the most recent of 3 results within the time period is included. WBC 5.07 4.50 - 11.00 k/uL [facility] RBC 4.22 4.20 - 5.50 m/uL [facility] HGB 11.6 (L) 12.0 - 16.0 g/dL [facility] HCT 35.5 (L) 37.0 - 47.0 % [facility] MCV 84.1 82.0 - 100.0 fL [facility] MCH 27.5 27.0 - 34.0 pg [facility] MCHC 32.7 31.0 - 37.0 g/dL [facility] RDW - SD 45.4 37.0 - 55.0 fL [facility] MPV SEE COMMENTComment: No report 8.8 - 13.2 fL [facility] Platelet count 61 (L) 150 - 400 k/uL [facility] Nucleated RBC 0.00 /100 WBC [facility] Neutrophils 64.1 39.0 - 69.0 % [facility] Lymphocytes 16.8 (L) 25.0 - 45.0 % [facility] Monocytes 11.4 (H) 0.0 - 10.0 % [facility] Eosinophils 5.5 (H) 0.0 - 5.0 % [facility] Basophils 2.0 (H) 0.0 - 1.0 % [facility] Immature granulocytes 0.2Comment: "Immature 0.0 - 1.0 % [facility] granulocytes" (promyelocytes, HOSPITAL myelocytes, metamyelocytes) Specimen Blood Performing Organization Address City/[facility]/[place] [address] PATHOLOGY AND [place] [address] HOSPITAL * Type and screen (08/27/2018 6:40 PM FISHER TRAP) ABO grouping AB [facility] Rh type POS [facility] Antibody screen (gel) NEG [facility] Specimen Blood Performing Organization Address City/[facility] Phone Number [address] [address] PATHOLOGY AND GENOMIC MEDICINE [address] * MRI Lumbar Spine Wo Contrast (08/27/2018 6:21 PM FISHER TRAP) Narrative Performed At EXAM: MRI LUMBAR SPINE WO CONTRAST HM RADIANT CLINICAL HISTORY: assess for compression fractures TECHNIQUE: Multiplanar multisequence noncontrast enhanced examination was performed of the Lumbar spine. COMPARISON:MRI thoracic spine, 08/26/2018 FINDINGS: There are five thm-oww-dnzfnul lumbar-type vertebrae, and the last functional disc is presumed to be L5-S1. Redemonstration of a subacute compression fracture involving the T12 vertebral body with approximately 50% vertebral height loss. No significant retropulsion is seen. Thoracolumbar levoscoliotic curvature is present with the left convex apex at the T12-L1 level and right convex apex at the L4-L5 level. T1 hypointense/STIR hyperintense Modic type I edema is identified at the left lateral endplates of L4-L5 and to lesser extent the right lateral endplates of L2-L3. Lumbar lordotic alignment, vertebral body height, and signal intensity are otherwise within normal limits. There is no evidence of acute lumbar fracture, suspicious osteolytic lesion, or suspicious osteoblastic lesion. No abnormal spinal cord signal is present. Evaluation of the disc levels is as follows: L1-L2: Mild bilateral facet hypertrophy. No significant thecal sac stenosis. Mild right inferior foraminal narrowing. No significant left inferior foraminal narrowing. L2-L3: Disc height loss, mild diffuse disc bulge, bilateral facet hypertrophy, and ligamentum flavum thickening. Impression upon the thecal sac without evidence of significant thecal sac stenosis. Dock-do-hrmgbgsy bilateral foraminal narrowing. L3-L4: Near-complete loss of disc height. Mild bilateral facet hypertrophy and ligamentum flavum thickening. Impression upon and mild triangular configuration of the thecal sac without evidence of significant thecal sac stenosis (best seen on T2 axial image 12, series 7). Moderate bilateral foraminal narrowing is noted with potential mild contact of the bilateral exiting L3 dorsal root ganglia. L4-L5: Disc height loss, minimal diffuse disc bulge, mild bilateral facet or vertebrae, and ligament flavum thickening. Impression upon the thecal sac without evidence of significant thecal sac stenosis. Severe left foraminal narrowing with compression of the exiting left L4 dorsal root ganglia. Mild right inferior foraminal narrowing is noted. L5-S1: Mild diffuse disc bulge and bilateral facet hypertrophy. No significant thecal sac stenosis. Cffl-gl-qiawmbod bilateral inferior foraminal narrowing. Visualized paraspinal soft tissues are unremarkable. IMPRESSION: 1.Redemonstration of a subacute compression fracture involving the T12 vertebral body with approximately 50% vertebral height loss. There is thoracolumbar levoscoliotic curvature with endplate degenerative edema (Modic type I), worse at the left lateral L4-L5 endplates. It is at this L4-L5 level at which there is right apex convexity of the scoliotic curvature and resulting compression/severe narrowing of the left L4-L5 foramina and exiting left L4 dorsal nerve ganglia. 2.Additional mild to moderate discogenic degenerative disease as listed. [facility]-[id number] Procedure Note [facility], Radiology Results Incoming - 08/27/2018 8:37 PM [facility] EXAM: MRI LUMBAR SPINE WO CONTRAST CLINICAL HISTORY: assess for compression fractures TECHNIQUE: Multiplanar multisequence noncontrast enhanced examination was performed of the Lumbar spine. COMPARISON: MRI thoracic spine, 08/26/2018 FINDINGS: There are five rnw-anj-hqnkypf lumbar-type vertebrae, and the last functional disc is presumed to be L5-S1. Redemonstration of a subacute compression fracture involving the T12 vertebral body with approximately 50% vertebral height loss. No significant retropulsion is seen. Thoracolumbar levoscoliotic curvature is present with the left convex apex at the T12-L1 level and right convex apex at the L4-L5 level. T1 hypointense/STIR hyperintense Modic type I edema is identified at the left lateral endplates of L4-L5 and to lesser extent the right lateral endplates of L2-L3. Lumbar lordotic alignment, vertebral body height, and signal intensity are otherwise within normal limits. There is no evidence of acute lumbar fracture, suspicious osteolytic lesion, or suspicious osteoblastic lesion. No abnormal spinal cord signal is present. Evaluation of the disc levels is as follows: L1-L2: Mild bilateral facet hypertrophy. No significant thecal sac stenosis. Mild right inferior foraminal narrowing. No significant left inferior foraminal narrowing. L2-L3: Disc height loss, mild diffuse disc bulge, bilateral facet hypertrophy, and ligamentum flavum thickening. Impression upon the thecal sac without evidence of significant thecal sac stenosis. Krqy-hd-qlkvgzgq bilateral foraminal narrowing. L3-L4: Near-complete loss of disc height. Mild bilateral facet hypertrophy and ligamentum flavum thickening. Impression upon and mild triangular configuration of the thecal sac without evidence of significant thecal sac stenosis (best seen on T2 axial image 12, series 7). Moderate bilateral foraminal narrowing is noted with potential mild contact of the bilateral exiting L3 dorsal root ganglia. L4-L5: Disc height loss, minimal diffuse disc bulge, mild bilateral facet or vertebrae, and ligament flavum thickening. Impression upon the thecal sac without evidence of significant thecal sac stenosis. Severe left foraminal narrowing with compression of the exiting left L4 dorsal root ganglia. Mild right inferior foraminal narrowing is noted. L5-S1: Mild diffuse disc bulge and bilateral facet hypertrophy. No significant thecal sac stenosis. Zoqy-hp-sobutkxs bilateral inferior foraminal narrowing. Visualized paraspinal soft tissues are unremarkable. IMPRESSION: 1. Redemonstration of a subacute compression fracture involving the T12 vertebral body with approximately 50% vertebral height loss. There is thoracolumbar levoscoliotic curvature with endplate degenerative edema (Modic type I), worse at the left lateral L4-L5 endplates. It is at this L4-L5 level at which there is right apex convexity of the scoliotic curvature and resulting compression/severe narrowing of the left L4-L5 foramina and exiting left L4 dorsal nerve ganglia. 2. 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 [facility]-[id number] Performing Organization Address City/State/Zipcode Phone Number [facility] [address] [place] [address] * MRI Thoracic Spine Wo Contrast (08/26/2018 9:01 PM FISHER TRAP) Narrative Performed At [facility] EXAMINATION:MRI THORACIC SPINE WO CONTRAST CLINICAL HISTORY:T-spine fxpathological COMPARISON:MRI of the lumbar spine dated November 10, 2015 CT of the chest dated August 07, 2016. TECHNIQUE: Multiplanar MRI imagingwithout IV Gadolinium was performed. IMPRESSION: Interval development of subacute compression fracture involving the right side of T12 vertebral body with the more than 30% height loss and no retropulsion or canal compromise. There is associated slight worsening of the left-sided scoliosis. Mild right-sided acute superior endplate compression fracture of L1 vertebral body with no significant height loss or retropulsion. Acute compression fractures involving T6 and T7 vertebral bodies with about 30% central and anterior height loss and no significant retropulsion or canal compromise. The spine canal is patent. There is no canal stenosis. The spinal cord demonstrates normal contour and signal with no focal lesion. The paravertebral soft tissues are unremarkable. [facility]-[id number] Procedure Note Hm Interface, Radiology Results Incoming - 08/26/2018 9:23 PM FISHER TRAP EXAMINATION: MRI THORACIC SPINE WO CONTRAST CLINICAL HISTORY: T-spine fx pathological COMPARISON: MRI of the lumbar spine dated November 10, 2015 CT of the chest dated August 07, 2016. TECHNIQUE: Multiplanar MRI imaging without IV Gadolinium was performed. IMPRESSION: Interval development of subacute compression fracture involving the right side of T12 vertebral body with the more than 30% height loss and no retropulsion or canal compromise. There is associated slight worsening of the left-sided scoliosis. Mild right-sided acute superior endplate compression fracture of L1 vertebral body with no significant height loss or retropulsion. Acute compression fractures involving T6 and T7 vertebral bodies with about 30% central and anterior height loss and no significant retropulsion or canal compromise. The spine canal is patent. There is no canal stenosis. The spinal cord demonstrates normal contour and signal with no focal lesion. The paravertebral soft tissues are unremarkable. [facility]-[id number] Performing Organization Address [facility] Phone Number [facility] [address] [place] [address] * Gram stain (08/26/2018 4:53 PM FISHER TRAP) Gram stain result Few WBC's [employer] [employer] No organisms seen HOSPITAL Comment: Specimen Information Specimen Source: Urine Specimen Site: Urine, clean catch Specimen Urine - Urine, clean catch Performing Organization Address [facility] Phone Number [facility] DEPARTMENT OF [address] [place] [address] PATHOLOGY AND GENOMIC MEDICINE [facility] * Urine culture (08/26/2018 4:53 PM FISHER TRAP) Urine culture isolate [facility]KO CONFUCIANIST [facility] HOSPITAL cori 10-4 col/cc Comment: Specimen Information Specimen Source: Urine Specimen Site: Urine, clean catch Specimen Urine - Urine, clean catch Performing Organization Address City/State/Zipcode Phone Number [facility] DEPARTMENT OF [address] [place] [address] PATHOLOGY AND GENOMIC MEDICINE [facility]FUCIAN[facility] [address] [place] [address] HOSPITAL * CT Chest W Contrast Abdomen W Contrast Pelvis W Contrast (08/26/2018 2:13 PM FISHER TRAP) Narrative Performed At EXAMINATION:CT CHEST W CONTRAST ABDOMEN W CONTRAST PELVIS W CONTRAST [facility] CLINICAL HISTORY:chest painabdominal pain TECHNIQUE: Multiple axial images of the chest, abdomen, and pelvis were obtained following intravenous administration of iodinated contrast. Sagittal and coronal computerized reformatted images were obtained. CT scans are performed using radiation dose reduction techniques. Technical factors are evaluated and adjusted to ensure appropriate moderation of exposure. Automated dose management technology is applied to adjust radiation exposure while achieving a diagnostic quality image. COMPARISON:12/09/2016 FINDINGS: Heart size appears mildly enlarged. There is a tiny pericardial effusion. The thoracic aorta demonstrates calcified and noncalcified plaque but is normal in caliber. There is no pleural effusion. No lymphadenopathy is present within the chest. Bronchiectasis and volume loss is present in the lingula. There is some scarring also present in the right middle lobe. Atelectasis is present in the dependent right and left lower lobes. A calcified granuloma measuring 5 mm is present in the right lower lobe. A benign, postinflammatory 2-3 mm groundglass nodule in the left lower lobe is stable to previous examination. Multiple calcified granulomas are again seen within the spleen. The gallbladder has been removed. There is mild stable prominence of the intrahepatic and extra hepatic bile ducts, stable to previous examination. Mild dilatation of the pancreatic duct is also stable. No pancreatic masses are seen. A 7-8 mm cyst is present within the right dome of the liver. 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 Left kidney is atrophic. There is calcified plaque within the abdominal aorta which is normal in caliber. No lymphadenopathy or ascites are present. Fecal material is present throughout the colon. There is no bowel obstruction. There are no inflammatory changes around the large or small bowel. Appendix is not clearly seen although no pericecal inflammatory changes are present. Bladder is partially distended with urine. Patient has undergone history. A small fat-containing left inguinal hernia is present. Compression deformities are present of the T6 and T7 vertebral bodies with widening of the T6-7 disc space. The findings may reflect advanced degenerative changes although underlying discitis cannot be excluded. Further evaluation is recommended with contrast-enhanced MRI of the thoracic spine. There is a chronic T12 compression fracture.There are degenerative changes throughout the thoracic and lumbosacral spine. There are old healed healed fractures of the left superior and inferior pubic rami. IMPRESSION: 1.There are compression deformities of the T6 and T7 vertebral bodies with widening of the T6-7 disc space. These findings may reflect advanced degenerative changes although underlying discitis cannot be excluded. Further evaluation is recommended with contrast-enhanced MRI of the thoracic spine. 2.Bronchiectasis and volume loss within the lingula is present. No consolidation is seen. 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 [id number] Procedure Note Interface, Radiology Results Incoming - 08/26/2018 3:13 PM FISHER TRAP EXAMINATION: CT CHEST W CONTRAST ABDOMEN W CONTRAST PELVIS W CONTRAST CLINICAL HISTORY: chest pain abdominal pain TECHNIQUE: Multiple axial images of the chest, abdomen, and pelvis were obtained following intravenous administration of iodinated contrast. Sagittal and coronal computerized reformatted images were obtained. CT scans are performed using radiation dose reduction techniques. Technical factors are evaluated and adjusted to ensure appropriate moderation of exposure. Automated dose management technology is applied to adjust radiation exposure while achieving a diagnostic quality image. COMPARISON: 12/09/2016 FINDINGS: Heart size appears mildly enlarged. There is a tiny pericardial effusion. The thoracic aorta demonstrates calcified and noncalcified plaque but is normal in caliber. There is no pleural effusion. No lymphadenopathy is present within the chest. Bronchiectasis and volume loss is present in the lingula. There is some scarring also present in the right middle lobe. Atelectasis is present in the dependent right and left lower lobes. A calcified granuloma measuring 5 mm is present in the right lower lobe. A benign, postinflammatory 2-3 mm groundglass nodule in the left lower lobe is stable to previous examination. Multiple calcified granulomas are again seen within the spleen. The gallbladder has been removed. There is mild stable prominence of the intrahepatic and extra hepatic bile ducts, stable to previous examination. Mild dilatation of the pancreatic duct is also stable. No pancreatic masses are seen. A 7-8 mm cyst is present within the right dome of the liver. 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 Left kidney is atrophic. There is calcified plaque within the abdominal aorta which is normal in caliber. No lymphadenopathy or ascites are present. Fecal material is present throughout the colon. There is no bowel obstruction. There are no inflammatory changes around the large or small bowel. Appendix is not clearly seen although no pericecal inflammatory changes are present. Bladder is partially distended with urine. Patient has undergone history. A small fat-containing left inguinal hernia is present. Compression deformities are present of the T6 and T7 vertebral bodies with widening of the T6-7 disc space. The findings may reflect advanced degenerative changes although underlying discitis cannot be excluded. Further evaluation is recommended with contrast-enhanced MRI of the thoracic spine. There is a chronic T12 compression fracture.There are degenerative changes throughout the thoracic and lumbosacral spine. There are old healed healed fractures of the left superior and inferior pubic rami. IMPRESSION: 1. There are compression deformities of the T6 and T7 vertebral bodies with widening of the T6-7 disc space. These findings may reflect advanced degenerative changes although underlying discitis cannot be excluded. Further evaluation is recommended with contrast-enhanced MRI of the thoracic spine. 2. Bronchiectasis and volume loss within the lingula is present. No consolidation is seen. 3. 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 [id number] Performing Organization Address City/State/Zipcode Phone Number [facility] [address] [place] [address] * Urinalysis (08/26/2018 12:42 PM FISHER TRAP) Glucose, UA Negative Negative [facility] Bilirubin, UA Negative Negative [facility] Ketones, UA 1+ (A) Negative [facility] Specific gravity, UA 1.020 1.001 - 1.035 [facility] Blood, UA Negative Negative [facility] pH, UA 7.0 5.0 - 8.5 [facility] Protein, UA Trace (A) Negative [facility] Urobilinogen, UA <2.0 <2.0 [facility] Nitrite, UA Negative Negative [facility] Leukocyte esterase, UA Small (A) Negative [facility] Color, UA Yellow [facility] Appearance, UA Clear [facility] Specimen Urine Performing Organization Address City/State/Zipcode Phone Number DEPARTMENT [address] [place] [address], [place] [address] PATHOLOGY AND GENOMIC [address] [place] [address] [facility] * Smear review (08/26/2018 11:40 AM FISHER TRAP) Platelet slide review Decreased (A) [facility] Anisocytosis Moderate [facility] Polychromasia Moderate [facility] Ovalocytes Moderate [facility] Enlarged platelets Moderate (A) [facility] Performing Organization Address City/State/Zipcode Phone Number [facility] [place] [address] PATHOLOGY AND GENOMIC MEDICINE [address] * Estimated GFR (08/26/2018 11:40 AM FISHER TRAP) Estimated GFR 46 (A) mL/min/1.73 m2 [facility] Comment: [facility] rpretation G1 >=90 Normal or high G2 60-89Mildly decreased [id number] Mildly to moderately decreased [id number] Moderately to severely decreased G4 15-29Severely decreased G5 <15Kidney failure The eGFR was calculated using the Chronic Kidney Disease Epidemiology Collaboration (CKD-EPI) equation. Interpretation is based on recommendations of the National Kidney Foundation-Kidney Disease Outcomes Quality Initiative (NKF-KDOQI) published in 2014. Specimen Plasma specimen Performing Organization Address City/State/Zipcode Phone Number DEPARTMENT [address], [place] [address] PATHOLOGY AND GENOMIC [address] [place] [address] [facility] * Lipase level (08/26/2018 11:40 AM FISHER TRAP) Lipase 44 13 - 60 U/L [facility] Specimen Serum Performing Organization Address City/State/Zipcode Phone Number DEPARTMENT OF [address] [facility], [place] [id number] PATHOLOGY AND GENOMIC [address] [place] [address] [facility] * Comprehensive metabolic panel (08/26/2018 11:40 AM FISHER TRAP) Only the most recent of 2 results within the time period is included. Sodium 139 135 - 148 mEq/L [facility] Potassium 4.1 3.5 - 5.0 mEq/L [facility] Chloride 104 98 - 112 mEq/L [facility] CO2 31 24 - 31 mEq/L [facility] Anion gap 4@ANIO (L) 7 - 15 mEq/L [facility] BUN 16 8 - 23 mg/dL [facility] Creatinine 1.07 (H) 0.50 - 0.90 mg/dL [facility] Glucose 91 65 - 99 mg/dL [facility] Calcium 9.7 8.8 - 10.2 mg/dL [facility] Protein 6.8 6.3 - 8.3 g/dL [facility] Albumin 3.9 3.5 - 5.0 g/dL [facility] A/G ratio 1.3 0.7 - 3.8 [facility] Alkaline phosphatase 70 35 - 104 U/L [facility] AST 19 10 - 35 U/L [facility] ALT 14 5 - 50 U/L [facility] Total bilirubin 0.5 0.0 - 1.2 mg/dL [facility] Specimen Plasma specimen Performing Organization Address City/State/Zipcode Phone Number DEPARTMENT OF [address] [place] [address] PATHOLOGY AND GENOMIC [address] MEDICINE, [facility] [address] [facility] [address] [place] [address] EM[facility]ARE [facility] * Pv duplex venous lower extremity (02/18/2018 12:59 PM CDT) Narrative Performed At [facility] Normal venous duplex scan of the right leg, except for the cystic structure in the right popliteal fossa. Performing Organization Address City/State/Zipcode Phone Number [facility] [address] [place] [address] * XR Chest 2 Vw (02/15/2018 11:31 AM CDT) Narrative Performed At EXAMINATION:XR CHEST 2 VW [facility] CLINICAL HISTORY:R07.89 Other chest pain, Chest Pain COMPARISON:05/18/2016 IMPRESSION: Heart and mediastinum are stable. Mild scoliosis. Lungs are free of consolidations. Osteopenia again noted. Calcified right paratracheal nodes again seen. [id number] Procedure Note Hm Interface, Radiology Results Incoming - 02/15/2018 11:46 AM CDT EXAMINATION: XR CHEST 2 VW CLINICAL HISTORY: R07.89 Other chest pain, Chest Pain COMPARISON: 05/18/2016 IMPRESSION: Heart and mediastinum are stable. Mild scoliosis. Lungs are free of consolidations. Osteopenia again noted. Calcified right paratracheal nodes again seen. [id number] Performing Organization Address [facility] Phone Number [facility] [address] [place] [address] * URINALYSIS, COMPLETE, WITH REFLEX TO CULTURE (02/15/2018 11:18 AM CDT) Specific gravity, urine 1.019 1.005 - 1.030 [...] a Urine Culture. Narrative Performed At Performed at:01 - [facility] [address] [place], [id number] Pipe Organ Builder: Man Melchor MD, Phone:[phone] Performing Organization Address City/[facility]/Zipcode Phone Number [facility] * Microscopic Examination (02/15/2018 11:18 AM CDT) WBC, UA 0-5 0 - 5 /hpf [facility] RBC, UA 0-2 0 - 2 /hpf [facility] Epithelial cells (non 0-10 0 - 10 /hpf [facility] renal) Crystals, urine Present (A) N/A [facility] Crystal type Amorphous Sediment N/A [facility] Mucus, UA Present Not Estab. [facility] Bacteria, UA None seen None seen/Few [facility] Narrative Performed At Performed at:01 - [facility] [address] [place], [id number] Pipe Organ Builder: Man Melchor MD, Phone:[phone] Performing Organization Address City/[facility] Phone Number [facility] * Lipid panel (02/15/2018 11:18 AM CDT) Cholesterol 175 100 - 199 mg/dL [facility] Triglycerides 96 0 - 149 mg/dL [facility] HDL cholesterol 74 >39 mg/dL [facility] VLDL cholesterol bibiana 19 5 - 40 mg/dL [facility] LDL cholesterol 82 0 - 99 mg/dL [facility] calculated Non-HDL cholesterol 101 0 - 129 mg/dL [facility] Specimen Blood Narrative Performed At Performed at: - [facility] [address] [place], [id number] Pipe Organ Builder: Man Melchor MD, Phone:[phone] Performing Organization Address City/[facility] Phone Number [facility] after 12/30/2017 Insurance Payer Benefit Subscriber ID Type Phone Address Plan / Group MEDICARE MEDICARE xxxxxxxxxxx Medicare [place], [place] PART A AND B COMMERCIAL MISC MISC xxxxxxxxx Commercial COMMERCIAL Advance Directives Patient has advance care planning documents on file. For more information, lissa adams contact: Amado Real [address] [place] [address]
[2018-12-31] MEDS ORDERED: ONDANSETRON HCL 4 MG ORAL DISINTEGRATING TAB PO ONE (08:00)
[2018-12-31] MEDS ORDERED: ALBUTEROL/IPRATROPIUM 3 ML NEB NEB ONE (08:00)
[2018-12-31] MEDS ORDERED: AZITHROMYCIN250 MG PO (08:04)
[2018-12-31] MEDS ORDERED: TESSALON PERLE100 MG PO (08:04)
[2018-12-31] MEDS ORDERED: VENTOLIN HFA18 GM INH (08:04)
--- NOTE | 2018-12-31 08:31 | Diagnostic Imaging Report ---
EXAMINATION: PA and lateral views of the chest. COMPARISON: None CLINICAL HISTORY: Cough and congestion DISCUSSION: The lungs are hyperinflated with flattening of the diaphragms and increased AP diameter of the chest. No focal airspace consolidation, pleural effusion, or pneumothorax. Mild prominence of the pulmonary interstitium, likely age-related fibrotic changes. Tortuosity of the thoracic aorta with associated atherosclerotic calcification. Normal heart size. Calcified mediastinal lymph nodes likely a consequence of prior granulomatous disease. No acute osseous abnormality. Levoscoliotic curvature at the thoracolumbar junction. Vertebroplasty cement at 3 levels of the mid and lower thoracic spine. Right upper quadrant surgical clips likely reflect cholecystectomy IMPRESSION: No acute cardiopulmonary abnormality. No consolidative pneumonia. Pulmonary hyperinflation compatible with emphysema. Signed by: Dr. Kyle Cruz M.D. on 12/31/2018 8:28 AM
[2018-12-31 08:32] VITALS: BP 178/83
== END 2018-12-31 09:00 | disposition home or self-care (01) ==
LOC: FSED 07:38
DX: R05 Cough (principal); J20.9 Acute bronchitis, unspecified; I10 Essential (primary) hypertension
CPT/HCPCS: 71046; 87400; 99283; Q0162